=== PATIENT | male | born 1970 | race Caucasian/White ===

== ENCOUNTER 2017-11-27 14:54 | Emergency (ER) | payer MEDICAID ==
[~2017-11-27] VITALS: Ht 177.8 cm; Wt 93.0 kg
[2017-11-27 15:18] VITALS: BP 154/101
[2017-11-27] MEDS ORDERED: SULF1TAB49 PO (16:00)
[2017-11-27] MEDS ORDERED: CEPH500C5 PO (16:00)
== END 2017-11-27 16:09 | disposition home or self-care (01) ==
LOC: ER 14:55
DX: L03.317 Cellulitis of buttock (principal)
CPT/HCPCS: 99283

== ENCOUNTER 2018-10-08 18:43 | Emergency (ER) | payer MEDICAID ==
[~2018-10-08] VITALS: Ht 177.8 cm; Wt 103.5 kg
[~2018-10-08 18:43] MED LIST: CEPH500C5 PO
[2018-10-08 19:00] VITALS: BP 152/88
[2018-10-08] MEDS ORDERED: proparacaine 0.5% ophthalmic drops 15ml EACHEYE ONE (20:15)
[2018-10-08] MEDS ORDERED: erythromycin ophthalmic ointment 1gm tube RIGHTEYE ONE (20:40)
[2018-10-08] MEDS ORDERED: ondansetron 4mg rapidly disintigrating tab PO ONE (20:40)
[2018-10-08] MEDS ORDERED: amoxicillin 250mg capsule PO ONE (20:40)
[2018-10-08] MEDS ORDERED: clindamycin 150mg capsule PO ONE (20:40)
[2018-10-08] MEDS ORDERED: AMOX500C2 PO (20:43)
[2018-10-08] MEDS ORDERED: CLIN150C8 PO (20:43)
== END 2018-10-08 20:58 | disposition home or self-care (01) ==
LOC: ER 18:43
DX: L03.213 Periorbital cellulitis (principal)
CPT/HCPCS: 99284